=== PATIENT | male | born 1945 | race Hispanic/Latino ===

== ENCOUNTER 2017-12-14 08:10 | Emergency (ER) | payer BC ==
[2017-12-14] MEDS ORDERED: Phenylephrine 0.5% Nasal Spray (15 ml) NS STA (08:23)
--- NOTE | 2017-12-14 08:28 | ED PDOC ---
Arrival/HPI - General Chief Complaint: Abnormal Skin Integrity Time Seen by Provider: 12/14/17 08:18 Historian: Patient - History of Present Illness Narrative History of Present Illness (Text): 12/14/17 08:25 A 72 year old male, whose past medical history includes COPD, presents to the emergency department for right nasal bleed, which began 2 hours ago. The patient reports that last night he was picking at his nose and this morning it began to bleed and when he applied packaging and pressure, the bleeding did not stop. The patient notes he has a sensation of blood going down the back of his throat. He denies any trauma to the area,taking blood thinners, and denies any fevers, nausea, vomiting, body aches, or any other complaints at this time. Time/Duration: 1-3 hours Symptom Onset: Sudden Symptom Course: Unchanged Severity Level: Mild Activities at Onset: Light Context: Home Past Medical History - Provider Review Nursing Documentation Reviewed: Yes - Travel History Have you recently traveled outside [place] w/in the past 3 mons?: No - Infectious Disease Hx of Infectious Diseases: None - Pulmonary Hx Chronic Obstructive Pulmonary Disease (COPD): Yes - Psychiatric Hx Substance Use: No - Surgical History Hx Appendectomy: Yes Family/Social History - Physician Review Nursing Documentation Reviewed: Yes Family/Social History: No Known Family HX Smoking Status: Former Smoker Hx Alcohol Use: No Hx Substance Use: No Allergies/Home Meds Allergies/Adverse Reactions: Allergies No Known Allergies Allergy (Verified 12/14/17 08:25) Home Medications: Home Meds Medication Instructions Recorded Confirmed Advair Diskus 500/50 1 puff INH BID 12/14/17 12/14/17 Spiriva 2 puff INH DAILY 12/14/17 12/14/17 Review of Systems - Physician Review All systems were reviewed & negative as marked: Yes - Review of Systems Constitutional: absent: Fevers, Other (body aches ) ENT: Epistaxis Gastrointestinal: absent: Nausea, Vomiting Physical Exam Vital Signs Reviewed: Yes Vital Signs Temp Pulse Resp BP Pulse Ox 12/14/17 08:26 97.6 F 84 16 152/89 H 96 Temperature: Afebrile Blood Pressure: Normal Pulse: Regular Respiratory Rate: Normal Appearance: Positive for: Well-Appearing, Non-Toxic, Comfortable Pain Distress: None Mental Status: Positive for: Alert and Oriented X 3 - Systems Exam Head: Present: Atraumatic, Normocephalic Pupils: Present: PERRL Extroacular Muscles: Present: EOMI Conjunctiva: Present: Normal Mouth: Present: Moist Mucous Membranes Nose (Internal): Present: Epistaxis Neck: Present: Normal Range of Motion Respiratory/Chest: Present: Clear to Auscultation, Good Air Exchange. No: Respiratory Distress, Accessory Muscle Use Cardiovascular: Present: Regular Rate and Rhythm, Normal S1, S2. No: Murmurs Abdomen: No: Tenderness, Distention, Peritoneal Signs Back: Present: Normal Inspection Upper Extremity: Present: Normal Inspection. No: Cyanosis, Edema Lower Extremity: Present: Normal Inspection. No: Edema Neurological: Present: GCS=15, CN II-XII Intact, Speech Normal Skin: Present: Warm, Dry, Normal Color. No: Rashes Psychiatric: Present: Alert, Oriented x 3, Normal Insight, Normal Concentration Medical Decision Making ED Course and Treatment: 12/14/17 08:30 Impression: A 72 year old male with right nasal epistaxis , afebrile with stable vital signs. Differential Diagnosis included but are not limited to: epitaxis Plan: -- Rhino Rocket -- Reassess and disposition Progress Notes: The patient is being sent home on antibiotics after anterior 5.5 cm Rhino Rocket placement , he is recommended to follow up with ENT specialist. Discharged home on prophylactic antibiotics. 12/14/17 09:08 - Medication Orders Current Medication Orders: Discontinued Medications Cephalexin Monohydrate (Keflex) 500 mg PO STAT STA PRN Reason: Protocol Stop: 12/14/17 08:25 Last Admin: 12/14/17 08:40 Dose: 500 mg Phenylephrine HCl (Keith-Synephrine 0.5% Nasal [place]) 0 ml NS STAT STA Stop: 12/14/17 08:24 Last Admin: 12/14/17 08:41 Dose: 1 spr Comments: Given to to use. - Scribe Statement The provider has reviewed the documentation as recorded by the Scribe Maylin Palacios Provider Scribe Attestation: All medical record entries made by the Scribe were at my direction and personally dictated by me. I have reviewed the chart and agree that the record accurately reflects my personal performance of the history, physical exam, medical decision making, and the department course for this patient. I have also personally directed, reviewed, and agree with the discharge instructions and disposition. Disposition/Present on Arrival - Present on Arrival Any Indicators Present on Arrival: No History of DVT/PE: No History of Uncontrolled Diabetes: No Urinary Catheter: No History of Decub. Ulcer: No History Surgical Site Infection Following: None - Disposition Have Diagnosis and Disposition been Completed?: Yes Diagnosis: Anterior epistaxis Disposition: HOME/ ROUTINE Disposition Time: 09:10 Patient Plan: Discharge Patient Problems: Current Active Problems Problem Status Onset Anterior epistaxis Acute Condition: GOOD Discharge Instructions (ExitCare): Nosebleeds (DC) Print Language: ARABIC Additional Instructions: use the phenylephrine 2 sprays twice /.day for today . On Saturday call Dr. Jensen's office . If bleeding is profuse and persistent then return to the ED. Prescriptions: Acetaminophen [Tylenol] 650 mg PO Q6 PRN #30 capsule PRN Reason: Pain, Moderate (4-7) Cephalexin [Keflex] 500 mg PO QID #28 capsule Referrals: Balta Rachel MD [Primary Care Provider] - Follow up with primary Abdoul Jensen DO [Staff Provider] - Follow up with primary Forms: [facility] (French), WORK NOTE
[2017-12-14 08:37] VITALS: RESP 16
[2017-12-14 09:27] VITALS: BP 140/76; PULSE 85; TEMP 97.7; O2SAT 97
== END 2017-12-14 09:28 | disposition home or self-care (01) ==
LOC: ED 08:10
DX: R04.0 Epistaxis (principal)

== ENCOUNTER 2018-01-05 15:46 | Emergency (ER) | payer BC ==
[2018-01-05] MEDS ORDERED: Oxycodone/Acetaminophen 5/325 mg Tab PO STA (15:57)
[2018-01-05 17:10] LABS: BASO # 0.02 K/mm3 (0.0-2.0); BASO % 0.3 % (0.0-3.0); EOS # 0.2 (0.0-0.7); GRAN # 4.55 (1.4-6.5); GRAN % 72.1 % (50.0-68.0); HEMOGLOBIN 14.2 g/dL (14.0-18.0); LYMPH # 1.3 (1.2-3.4); LYMPH % 19.8 % (22.0-35.0); MEAN CELL VOLUME 91.5 fl (80.0-105.0); MEAN CORPUSCULAR HEMOGLOBIN 30.2 pg (25.0-35.0); MEAN PLATELET VOLUME 9.6 fl (7.0-11.0); MONO # 0.3 (0.1-0.6); MONO % 4.8 % (1.0-6.0); RBC 4.7 10^6/uL (3.5-6.1); RED CELL DISTRIBUTION WIDTH 13.5 % (11.5-14.5); WHITE BLOOD COUNT 6.3 10^3/ul (4.5-11.0)
--- NOTE | 2018-01-05 17:12 | ED PDOC ---
Arrival/HPI - General Chief Complaint: ENT Problem Time Seen by Provider: 01/05/18 15:48 Historian: Patient - History of Present Illness Narrative History of Present Illness (Text): 01/05/18 16:35 A 72 year old male, whose past medical history includes COPD, presents to the emergency department complaining of ongoing epistaxis. Patient reports having been seen 5 days ago for similar problem and had nasal cauterized. Today nosebleed began suddenly. Patient denies any other complaints at this time. PMD: Dr. Rachel Past Medical History - Provider Review Nursing Documentation Reviewed: Yes - Infectious Disease Hx of Infectious Diseases: None - Pulmonary Hx Chronic Obstructive Pulmonary Disease (COPD): Yes Hx Emphysema: Yes - Psychiatric Hx Substance Use: No - Surgical History Hx Appendectomy: Yes - Anesthesia Hx Anesthesia: Yes Hx Anesthesia Reactions: No Hx Malignant Hyperthermia: No Family/Social History - Physician Review Nursing Documentation Reviewed: Yes Family/Social History: No Known Family HX Smoking Status: Former Smoker Hx Alcohol Use: No Hx Substance Use: No Allergies/Home Meds Allergies/Adverse Reactions: Allergies No Known Allergies Allergy (Verified 01/05/18 15:54) Home Medications: Home Meds Medication Instructions Recorded Confirmed Advair Diskus 500/50 1 puff INH BID 12/14/17 01/05/18 Spiriva 2 puff INH DAILY 12/14/17 01/05/18 Review of Systems - Physician Review All systems were reviewed & negative as marked: Yes - Review of Systems Constitutional: absent: Fevers, Night Sweats ENT: Epistaxis Respiratory: absent: SOB Cardiovascular: absent: Chest Pain Gastrointestinal: absent: Abdominal Pain, Nausea, Vomiting Physical Exam Vital Signs Reviewed: Yes Vital Signs Temp Pulse Resp BP Pulse Ox 01/05/18 15:51 98.4 F 112 H 18 159/94 H 96 Temperature: Afebrile Blood Pressure: Hypertensive Pulse: Regular Respiratory Rate: Normal Appearance: Positive for: Well-Appearing Pain Distress: None Mental Status: Positive for: Alert and Oriented X 3 - Systems Exam Nose (Internal): Present: Epistaxis Medical Decision Making ED Course and Treatment: 01/05/18 16:40 Impression: 72 year old male with epistaxis. Plan: -- Labs -- Ativan -- Zofran -- Oxycodone -- Reassess and disposition Prior Visits: Notes and results from previous visits were reviewed. Patient was last seen in the emergency department on 12/14/2017 for right nasal bleed. Patient was discharged home. Progress Notes: 01/05/18 17:00 Placed a 7.5 cm A/P Balloon into right nare, filled with 9 cc of air. Stopped bleeding to right nare. - Lab Interpretations Lab Results: 01/05/18 16:45 01/05/18 16:45 Lab Results 01/05/18 16:45: Sodium 145, Potassium 3.9, Chloride 105, Carbon Dioxide 27, Anion Gap 18, BUN 19, Creatinine 0.9, Est GFR ( Amer) > 60, Est GFR (Non- Af Amer) > 60, Random Glucose 152 H, Calcium 9.2, Total Bilirubin 0.4, AST 18, ALT 22, Alkaline Phosphatase 65, Total Protein 7.3, Albumin 4.2, Globulin 3.1, Albumin/Globulin Ratio 1.4 01/05/18 16:45: PT 11.6, INR 1.02 01/05/18 16:45: WBC 6.3, RBC 4.70, Hgb 14.2, Hct 43.0, MCV 91.5, MCH 30.2, MCHC 33.0, RDW 13.5, Plt Count 235, MPV 9.6, Gran % 72.1 H, Lymph % (Auto) 19.8 L, [place] % (Auto) 4.8, Eos % (Auto) 3.0, Baso % (Auto) 0.3, Gran # 4.55, Lymph # ( Auto) 1.3, [place] # (Auto) 0.3, Eos # (Auto) 0.2, Baso # (Auto) 0.02 01/05/18 16:40: Blood Type Pending, Antibody Screen Pending, BBK History Checked No verified bt - Medication Orders Current Medication Orders: Discontinued Medications Lorazepam (Ativan) 1 mg PO ONCE ONE PRN Reason: Protocol Stop: 01/05/18 15:57 Last Admin: 01/05/18 16:39 Dose: 1 mg Ondansetron HCl (Zofran Odt) 4 mg PO STAT STA Stop: 01/05/18 15:58 Last Admin: 01/05/18 16:39 Dose: 4 mg Oxycodone/Acetaminophen (Percocet 5/325 Mg Tab) 1 tab PO STAT STA Stop: 01/05/18 15:58 Last Admin: 01/05/18 16:39 Dose: 1 tab MAR Pain Assessment Document 01/05/18 16:39 GMI (Rec: 01/05/18 16:39 GMI [facility] [id number]) Pain Reassessment Is this a pain reassessment? Yes Sleep Is patient sleeping during reassessment? No Presence of Pain Presence of Pain Yes Description Intensity of Pain at present 5 Pain Behavior Facial Grimacing - Scribe Statement The provider has reviewed the documentation as recorded by the Nevinibe Nereyda Gomez Provider Scribe Attestation: All medical record entries made by the Scribe were at my direction and personally dictated by me. I have reviewed the chart and agree that the record accurately reflects my personal performance of the history, physical exam, medical decision making, and the department course for this patient. I have also personally directed, reviewed, and agree with the discharge instructions and disposition. Disposition/Present on Arrival - Present on Arrival Any Indicators Present on Arrival: No History of DVT/PE: No History of Uncontrolled Diabetes: No Urinary Catheter: No History of Decub. Ulcer: No History Surgical Site Infection Following: None - Disposition Have Diagnosis and Disposition been Completed?: Yes Diagnosis: Epistaxis, recurrent Disposition: HOME/ ROUTINE Disposition Time: 17:31 Patient Plan: Discharge Condition: GOOD Discharge Instructions (ExitCare): Nosebleeds (DC) Additional Instructions: Mr Izaguirre - Leave the balloon in place and see the ENT doctor Saturday. Nothing Hot to eat or drink. Everything should be room temperature or cold. Ice pack to the back of the neck. Return to us if worse or problems. Best- Dr. Bobby Luciano Referrals: Balta Rachel MD [Primary Care Provider] - Follow up with primary Forms: [email or web address] (Armenian)
[2018-01-05 17:13] LABS: ALB/GLOB RATIO 1.4 (1.1-1.8); ALBUMIN 4.2 g/dL (3.0-4.8); ALT/SGPT 22 U/L (7-56); AST/SGOT 18 U/L (17-59); BLOOD UREA NITROGEN 19 mg/dL (7-21); CALCIUM 9.2 mg/dL (8.4-10.5); GFR AFRICAN-AMERICAN > 60; GFR NON-AFRICAN AMERICAN > 60
[2018-01-05 17:20] LABS: INR 1.02 (0.93-1.08); PROTHROMBIN TIME 11.6 SECONDS (9.4-12.5)
[2018-01-05 18:08] VITALS: RESP 19
[2018-01-05 18:13] VITALS: BP 127/72; PULSE 82; TEMP 97.5; O2SAT 99
== END 2018-01-05 18:11 | disposition home or self-care (01) ==
LOC: ED 15:46
DX: R04.0 Epistaxis (principal); J44.9 Chronic obstructive pulmonary disease, unspecified; Z87.891 Personal history of nicotine dependence

== ENCOUNTER 2018-11-22 08:42 | Outpatient (CLI) | payer BC | END 2018-11-22 08:43 | disposition home or self-care (01) | LOC: RAD 08:42 | DX: R91.1 Solitary pulmonary nodule (principal) ==